=== PATIENT | male | born 1945 | race Caucasian/White ===

== ENCOUNTER → 2021-01-04 | Outpatient (CLI) | payer MEDICARE, BC ==
[2015-03-18 09:45] VITALS: BP 136/83
[~2021-01-04] MED LIST: AMLODIPINE5 MG PO; CHILDREN'S ASPI81 M1 PO; ELIDEL1% TP; ENALAPRIL10 MG PO; LIPITOR20 MG PO; VITAMIN C500 MG PO
[2021-01-04 23:20] LABS: TESTOSTERONE 271 ng/dL (221-716)
== END ==
LOC: LAB 10:43
PROVIDERS: Internal Medicine
DX: M85.80 Other specified disorders of bone density and structure, unspecified site (principal)

== ENCOUNTER → 2021-01-19 | Outpatient (CLI) | payer MEDICARE, BC ==
[2021-01-19 23:51] LABS: FOLLICLE STIMULATING HORMONE 3.9 mIU/mL (1.0-12.0); LUTENIZING HORMONE 2.7 mIU/mL (0.6-12.1); PROLACTIN AMS 13.2 ng/mL (3.5-19.4)
== END ==
LOC: LAB 09:10
PROVIDERS: Internal Medicine
DX: M85.80 Other specified disorders of bone density and structure, unspecified site (principal)

== ENCOUNTER → 2024-03-18 | Outpatient (CLI) | payer MEDICARE, BC ==
[2024-03-18 09:46] LABS: BASO # 0.01 K/mm3 (0.02-0.10); EOS # 0.09 K/mm3 (0.04-0.40); EOS % 0.9 % (0.0-4.0); HEMATOCRIT 48.6 % (42.0-52.0); HEMOGLOBIN 16.4 g/dL (13.5-18.0); MEAN CELL VOLUME 84 fl (78-100); MEAN CORPUSCULAR HEMOGLOBIN 28 pg (27-31); MEAN CORPUSCULAR HGB CONC 34 g/dL (33-37); NEU # 7.23 K/mm3 (1.40-6.50); PLATELET COUNT 232 K/mm3 (130-400); RED CELL DISTRIBUTION WIDTH 14.1 % (11.5-14.5); WHITE BLOOD COUNT 9.7 K/mm3 (4.8-10.8)
== END ==
LOC: LAB 09:28
PROVIDERS: Nurse Practitioner Family
DX: M25.561 Pain in right knee (principal)

== ENCOUNTER 2024-03-28 07:29 | Emergency (ER) | payer MEDICARE, BC ==
[~2024-03-28] VITALS: Ht 188 cm; Wt 111.4 kg
[2024-03-28 08:30] LABS: BASO # 0.01 K/mm3 (0.02-0.10); EOS # 0.05 K/mm3 (0.04-0.40); EOS % 0.5 % (0.0-4.0); HEMOGLOBIN 16.6 g/dL (13.5-18.0); LYMPH# 1.02 K/mm3 (1.50-4.00); MEAN CELL VOLUME 81 fl (78-100); MEAN CORPUSCULAR HEMOGLOBIN 28 pg (27-31); MEAN CORPUSCULAR HGB CONC 35 g/dL (33-37); MEAN PLATELET VOLUME 8.6 fl (7.4-10.4); MONO # 0.85 K/mm3 (0.20-0.80); PLATELET COUNT 294 K/mm3 (130-400); RED CELL DISTRIBUTION WIDTH 13.7 % (11.5-14.5); WHITE BLOOD COUNT 9.6 K/mm3 (4.8-10.8)
[2024-03-28] MEDS ORDERED: Meclizine 12.5 MG TAB PO ONE (08:30)
[2024-03-28 08:35] LABS: CALCIUM 10.1 mg/dL (8.3-10.5)
[2024-03-28 08:36] LABS: TOTAL PROTEIN 6.3 g/dL (6.2-8.1)
[2024-03-28 08:38] LABS: TOTAL BILIRUBIN 0.8 mg/dL (0.2-1.2)
[2024-03-28 13:20] VITALS: BP 144/93
== END 2024-03-28 11:49 | disposition home or self-care (01) ==
LOC: ED 07:29
PROVIDERS: Family Medicine
DX: E86.0 Dehydration (principal); E66.9 Obesity, unspecified
CPT/HCPCS: J7120